=== PATIENT | male | born 1970 | race Caucasian/White ===

== ENCOUNTER 2019-08-07 18:22 | Emergency (ER) | payer BC ==
[~2019-08-07 18:22] MED LIST: TOBRAMYCIN 0.3% OPHTH DROPS 5 ML BTL ONE
[2019-08-07 18:27] VITALS: BP 155/91; PULSE 73; RESP 18; TEMP 98.1
[2019-08-07] MEDS ORDERED: TOBRAMYCIN 0.3% OPHTH DROPS 5 ML BTL BOTH EYES STA (18:29)
[2019-08-07] MEDS ORDERED: PROPARACAINE 0.5% OPHTH DROPS 15 ML BTL BOTH EYES STA (18:29)
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
[2019-08-07] MEDS ORDERED: ACET/COD 300 MG/30 MG STARTER PACK 6 TAB BTL PO STA (18:58)
== END 2019-08-07 19:07 | disposition home or self-care (01) ==
LOC: EC 18:22
DX: S05.02XA Injury of conjunctiva and corneal abrasion without foreign body, left eye, initial encounter (principal); F17.200 Nicotine dependence, unspecified, uncomplicated; Z97.3 Presence of spectacles and contact lenses; W22.8XXA Striking against or struck by other objects, initial encounter; Y93.01 Activity, walking, marching and hiking; Y92.89 Other specified places as the place of occurrence of the external cause
CPT/HCPCS: 99283